=== PATIENT | female | born 1975 | race Caucasian/White ===

== ENCOUNTER → 2016-06-25 | Outpatient (CLI) | payer BC ==
[~2016-06-25] MED LIST: PRENTAB26 PO
--- NOTE | 2016-06-25 11:00 | DIAGNOSTIC IMAGING REPORT ---
RIGHT WRIST MIN 3 VIEWS ROUTINE CLINICAL HISTORY: Right wrist pain. COMPARISON: None FINDINGS: Alignment of the right carpal bones is anatomic. There is no acute fracture. Joint spaces are preserved. No osseous lesion is evident. IMPRESSION: Unremarkable right wrist radiographs. Electronically signed by: Cirilo Cosby M.D. 06/25/2016 10:58 AM Dictated Date/Time: 06/25/2016 10:58 AM
== END | disposition home or self-care (01) ==
LOC: C.RADBC 09:57
PROVIDERS: ATTEND Family Medicine
DX: M25.531 Pain in right wrist (principal)

== ENCOUNTER → 2017-10-09 | Outpatient (CLI) | payer OTHER ==
--- NOTE | 2017-10-09 09:52 | DIAGNOSTIC IMAGING REPORT ---
CHEST 2 VIEWS ROUTINE CLINICAL HISTORY: COUGH dyspnea COMPARISON STUDY: No previous studies for comparison. FINDINGS: The bones soft tissues and hemidiaphragms are normal. The cardiomediastinal silhouette is normal. The lungs are clear. The pulmonary vasculature is normal. IMPRESSION: Negative chest. The above report was generated using voice recognition software. It may contain grammatical, syntax or spelling errors. Electronically signed by: Dale Dimas M.D. 10/09/2017 9:51 AM Dictated Date/Time: 10/09/2017 9:50 AM
== END | disposition home or self-care (01) ==
LOC: C.RAD 09:31
PROVIDERS: ATTEND Family Medicine
DX: R05 Cough (principal)

== ENCOUNTER 2020-04-15 19:30 | Observation (INO) ==
[2020-04-15] MEDS ORDERED: ONDANSETRON INJ 2 MG/ML 2 ML VIAL IV STA (19:43)
[2020-04-15] MEDS ORDERED: ACETAMINOPHEN 1,000 MG/100 ML VIAL IV STA (19:43)
[2020-04-15] MEDS ORDERED: HYDROmorphone INJ 0.5 MG/0.5 ML SYR IV PRN (19:43)
[2020-04-15] MEDS ORDERED: SODIUM CHLORIDE 0.9% 1000ML 1,000 ML IV SCH (19:45)
--- NOTE | 2020-04-15 20:00 | Emergency Department Note ---
History of Present Illness General Chief complaint: Abdominal Pain Stated complaint: ABD PAIN Time Seen by Provider: 04/15/20 19:37 Source: patient, family (), RN notes reviewed and old records reviewed Mode of arrival: ambulatory Limitations: no limitations History of Present Illness Provider complaint: Abdominal pain Onset (ago): hour(s) 6 Location: abdomen and right Radiation: non-radiation Severity: moderate Pain Consistency: + intermittent Maximum Pain Intensity: 8 Current Pain Intensity: 8 Quality: + aching Relieved By: + immobilization Exacerbated By: + movement Associated symptoms: + nausea/vomiting; no chest pain, no fever/chills, no headaches, no loss of appetite and no shortness of breath This is a 44-year-old female who presents the emergency department complaining right upper quadrant and right lower quadrant abdominal pain that started approximately 2:00 this afternoon. The patient reports the pain was gradual in onset. She has not taken anything for the pain. She reports she has never had pain like this before. The patient is concerned it is her appendix. She reports movement makes the pain worse however immobilization makes the pain better. She describes the pain is a burning sensation. She still has her appendix and her gallbladder and has no history of abdominal surgery. She denies being . Home Medications Home Medications Medication Instructions Recorded Confirmed Type Probiotic 3,000 mmu cells PO QPM 06/08/18 04/15/20 History Zyrtec 10 mg PO QAM 06/08/18 04/15/20 History pantoprazole [Protonix] 40 mg PO QAM 06/08/18 04/15/20 History calcium carbonate-vitamin D3 600 1 tab PO DAILY 01/10/20 04/15/20 History mg (1,500 mg)-800 unit tablet multivitamin 1 tab PO DAILY 01/10/20 04/15/20 History diclofenac sodium 75 mg 75 mg PO BID 02/05/20 04/15/20 History tablet,delayed release tamoxifen 20 mg PO DAILY 04/15/20 04/15/20 History Allergies Allergy/AdvReac Type Severity Reaction Status Date / Time No Known Allergies Allergy Verified 04/15/20 20:11 Past Med/Surg History Medical History Encounter for pre-operative examination Fibroadenoma of left breast GERD (gastroesophageal reflux disease) PONV (postoperative nausea and vomiting) Swollen uvula Surgical History History of mandibular surgery ORTHODONITIC SURGERY S/P excision of lipoma RIGHT HIP Family History Mother Diabetes type 2 Father Cancer prosate ca Son No problems noted. Son No problems noted. Social History Smoking Status: Never smoker Second Hand Exposure: No; Hx Alcohol Use: No Hx Substance Use: No Preferred Language: Norwegian Communication Ability: Effective Visual Impairment: No Limitations Hearing Ability: Normal Plate Gauger Required: No Beliefs That Will Affect Care: None marital status: Current Living Situation: Spouse current occupation: stay at home parent How many Children do You have: 2 Feels Safe at Home: Yes Childhood Exposure to Second-Hand Smoke: No Diet Comment: watches refined carbs caffeine: Yes (2-3 cups coffee per day , one cup green tea) during the past year weight has: remained stable Dental Care, Regularly: Yes Physical Activity Frequency: 5-6 Times per Week Seatbelt Use: always Sunscreen Use: Yes Assistive Devices: None Review of Systems A total of 10 systems reviewed and were otherwise negative Physical Exam Vital Signs Vital Signs - 24 hr 04/15/20 19:33 04/15/20 20:04 04/15/20 20:42 Temperature 36.8 C Temperature Source Oral Pulse Rate 106 H 106 H 94 H Pulse Rate from SpO2 Sensor 95 H Pulse Rhythm Regular Respiratory Rate 16 16 17 Respiratory Effort / Characteristics Non-Labored Spontaneous Respiratory Depth Normal Respiratory Pattern Regular Blood Pressure 126/64 129/81 Blood Pressure Mean 84 97 Blood Pressure Position Sitting Pulse Oximetry 100 100 100 Oxygen Delivery Method Room Air Room Air Sepsis Recent Fever Within 48 Hours No Sepsis New/Unexplained Change in Mental Status No Sepsis Action Taken by Nursing No Action Required 04/15/20 21:00 04/15/20 21:30 04/15/20 22:32 Temperature Temperature Source Pulse Rate 97 H 97 H 102 H Pulse Rate from SpO2 Sensor 96 H 98 H 102 H Pulse Rhythm Respiratory Rate 13 14 18 Respiratory Effort / Characteristics Respiratory Depth Respiratory Pattern Blood Pressure 140/86 136/65 135/75 Blood Pressure Mean 100 87 104 Blood Pressure Position Pulse Oximetry 100 100 99 Oxygen Delivery Method Sepsis Recent Fever Within 48 Hours Sepsis New/Unexplained Change in Mental Status Sepsis Action Taken by Nursing 04/15/20 23:15 Temperature Temperature Source Pulse Rate 86 Pulse Rate from SpO2 Sensor 82 Pulse Rhythm Respiratory Rate 15 Respiratory Effort / Characteristics Respiratory Depth Respiratory Pattern Blood Pressure 131/75 Blood Pressure Mean 97 Blood Pressure Position Pulse Oximetry 100 Oxygen Delivery Method Room Air Sepsis Recent Fever Within 48 Hours Sepsis New/Unexplained Change in Mental Status Sepsis Action Taken by Nursing VITAL SIGNS - Vital signs and nursing notes were reviewed. GENERAL - 44-year-old female appearing stated age who is in no acute distress. Communicates well with provider and answers questions appropriately. SKIN - Without rashes. HEAD - NC/AT. EYES - PERRL with EOMI bilaterally. Sclera anicteric. Palpebral conjunctiva pink and moist with no injection noted. EARS - No deformities of external structures noted on gross examination bilaterally. No pain elicited with palpation of the tragus bilaterally. External auditory canals without discharge or otorrhea. Tympanic membranes pearly cummins without retraction or bulging. No fluid or purulent material visualized behind the TM. Handle of malleus, umbo, cone of light, pars tensa/flaccid all easily visualized. NOSE - Midline and without cyanosis. No epistaxis or purulent drainage noted. Septum midline without deviation or septal hematoma noted. MOUTH/OROPHARYNX - Without perioral cyanosis. Buccal mucosa pink and moist and without leukoplakia. Tongue midline with equal elevation of palate bilaterally. No tonsillar hypertrophy, erythema, or exudates noted. dentition noted. NECK - Neck with FROM. Supple to palpation. lymphadenopathy noted. No nuchal rigidity. LUNGS - Chest wall symmetric without accessory muscle use, intercostals retractions, or central cyanosis. Normal vesicular breath sounds CTA B/L. No wheezes, rales, or rhonchi appreciated. CARDIAC - RRR with S1/S2. No murmur, rubs, or gallops appreciated. ABDOMEN - Abdominal contour without pulsations or visible masses. BS normoactive all four quadrants. + tenderness RLQ, No palpable masses, hepatosplenomegaly, or ascites noted. EXTREMITIES - No clubbing or peripheral cyanosis. No pretibial edema present. +3/5 radial, posterior tibial, and dorsalis pedis pulses palpated throughout. +5/5 strength noted in UE/LE bilaterally. NEUROLOGIC - Cranial nerves II through XII grossly intact. Sensory intact to light touch throughout. Patellar reflexes +2/4. PSYCH - A&Ox3 and cooperates fully with examiner. Pt is very pleasant and interacts well with examiner. Course Administered Medications Hydromorphone HCl (Hydromorphone Inj 0.5 Mg/0.5 Ml Syr) 0.5 mg IV Q15M PRN PRN Reason: Pain Stop: 04/29/20 19:42 Last Admin: 04/15/20 23:08 Dose: 0.5 mg Documented by: [id number] Discontinued Medications Sodium Chloride (Nss 1000ml) 1,000 mls @ 999 mls/hr IV .Q1H1M ALEXANDER Stop: 04/15/20 20:45 Last Infusion: 04/15/20 21:35 Dose: 0 mls/hr Documented by: [id number] Admin: 04/15/20 20:11 Dose: 999 mls/hr Documented by: [id number] Acetaminophen (Ofirmev) 1,000 mg in 100 mls @ 400 mls/hr IV NOW STA Stop: 04/15/20 19:57 Last Infusion: 04/15/20 20:31 Dose: 0 mls/hr Documented by: [id number] Admin: 04/15/20 20:14 Dose: 400 mls/hr Documented by: [id number] Cefoxitin Sodium (Mefoxin) 2,000 mg in 60 mls @ 100 mls/hr IV NOW STA Stop: 04/15/20 23:20 Last Admin: 04/15/20 23:12 Dose: 100 mls/hr Documented by: [id number] Ioversol (Ioversol 100ml) 93 ml IV ONCE ONE Stop: 04/15/20 22:21 Last Admin: 04/15/20 22:21 Dose: 1 ml Documented by: [id number] Ondansetron HCl (Ondansetron Inj 2 Mg/Ml 2 Ml Vial) 4 mg IV NOW STA Stop: 04/15/20 19:44 Last Admin: 04/15/20 20:11 Dose: 4 mg Documented by: [id number] Medical Decision Making Differential Diagnosis Appendicitis, ovarian cyst, ovarian torsion, ectopic , TOA, PID, infections, diverticulitis, UTI, obstruction, mesenteric ischemia, aortic pathology, inflammatory bowel disease, renal colic, PUD, pancreatitis, biliary pathology, hernia, volvulus, constipation, as well as other pathologies. Medical Records Attestation: I reviewed the patient's medical records. Home Medications Current Medication List: was personally reviewed by me Laboratory Data Attestation: I reviewed the patient's lab results. Result diagrams: 04/15/20 20:04 04/15/20 20:04 Lab Results 04/15/20 04/15/20 04/15/20 Range/Units 20:04 20:04 20:04 WBC 12.38 H (4.8-10.8) K/uL RBC 4.07 L (4.2-5.4) M/uL Hgb 11.3 L (12.0-16.0) g/dL Hct 35.9 L (37-47) % MCV 88.2 (80-100) fL MCH 27.8 (25-34) pg MCHC 31.5 L (32-36) g/dL RDW Std Deviation 50.3 H (36.4-46.3) fL RDW Coeff of Shantel 15.4 H (11.5-14.5) % Plt Count 262 (130-400) K/uL MPV 10.1 (7.4-10.4) fL Immature Gran % (Auto) 0.2 % Neut % (Auto) 89.1 % Lymph % (Auto) 5.1 % [place] % (Auto) 5.3 % Eos % (Auto) 0.1 % Baso % (Auto) 0.2 % Neut # (Auto) 11.02 H (1.4-6.5) K/uL Lymph # (Auto) 0.63 L (1.2-3.4) K/uL [place] # (Auto) 0.66 H (0.11-0.59) K/uL Eos # (Auto) 0.01 (0-0.5) K/uL Baso # (Auto) 0.03 (0-0.2) K/uL Immature Gran # (Auto) 0.03 H (0.00-0.02) K/uL Sodium 139 (136-145) mmol/L Potassium 3.4 L (3.5-5.1) mmol/L Chloride 107 (98-107) mmol/L Carbon Dioxide 25 (21-32) mmol/L Anion Gap 7.0 (3-11) BUN 10 (7-18) mg/dl Creatinine 0.81 (0.6-1.2) mg/dl Est Cr Clr Drug Dosing 88.0 ml/min Est GFR ( Amer) 103.8 Est GFR (Non-Af Amer) 89.6 BUN/Creatinine Ratio 11.8 (10-20) Glucose 110 H (70-99) mg/dl Calcium 8.8 (8.5-10.1) mg/dl Total Bilirubin 0.7 (0.2-1) mg/dl AST 14 L (15-37) U/L ALT 18 (12-78) U/L Alkaline Phosphatase 34 L (45-117) U/L Total Protein 7.7 (6.4-8.2) gm/dl Albumin 3.9 (3.4-5.0) gm/dl Globulin 3.8 (2.5-4.0) gm/dl Albumin/Globulin Ratio 1.0 (0.9-2) Lipase 112 (73-393) U/L Urine Color Yellow Urine Appearance Clear (Clear) Urine pH >= 9.0 H (4.5-7.5) Ur Specific Whitney 1.017 (1.000-1.030) Urine Protein Negative (Negative) Urine Glucose (UA) Negative (Negative) Urine Ketones 4+ H (Negative) Urine Blood Negative (Negative) Urine Nitrite Negative (Negative) Urine Bilirubin Negative (Negative) Urine Urobilinogen Negative (Negative) Ur Leukocyte Esterase Negative (Negative) Urine Test (Negative) COVID-19 Eval Order SARS-CoV-2, RNA, NAAT 04/15/20 04/15/20 04/15/20 Range/Units 20:04 23:18 23:18 WBC (4.8-10.8) K/uL RBC (4.2-5.4) M/uL Hgb (12.0-16.0) g/dL Hct (37-47) % MCV (80-100) fL MCH (25-34) pg MCHC (32-36) g/dL RDW Std Deviation (36.4-46.3) fL RDW Coeff of Shantel (11.5-14.5) % Plt Count (130-400) K/uL MPV (7.4-10.4) fL Immature Gran % (Auto) % Neut % (Auto) % Lymph % (Auto) % [place] % (Auto) % Eos % (Auto) % Baso % (Auto) % Neut # (Auto) (1.4-6.5) K/uL Lymph # (Auto) (1.2-3.4) K/uL [place] # (Auto) (0.11-0.59) K/uL Eos # (Auto) (0-0.5) K/uL Baso # (Auto) (0-0.2) K/uL Immature Gran # (Auto) (0.00-0.02) K/uL Sodium (136-145) mmol/L Potassium (3.5-5.1) mmol/L Chloride (98-107) mmol/L Carbon Dioxide (21-32) mmol/L Anion Gap (3-11) BUN (7-18) mg/dl Creatinine (0.6-1.2) mg/dl Est Cr Clr Drug Dosing ml/min Est GFR ( Amer) Est GFR (Non-Af Amer) BUN/Creatinine Ratio (10-20) Glucose (70-99) mg/dl Calcium (8.5-10.1) mg/dl Total Bilirubin (0.2-1) mg/dl AST (15-37) U/L ALT (12-78) U/L Alkaline Phosphatase (45-117) U/L Total Protein (6.4-8.2) gm/dl Albumin (3.4-5.0) gm/dl Globulin (2.5-4.0) gm/dl Albumin/Globulin Ratio (0.9-2) Lipase (73-393) U/L Urine Color Urine Appearance (Clear) Urine pH (4.5-7.5) Ur Specific Whitney (1.000-1.030) Urine Protein (Negative) Urine Glucose (UA) (Negative) Urine Ketones (Negative) Urine Blood (Negative) Urine Nitrite (Negative) Urine Bilirubin (Negative) Urine Urobilinogen (Negative) Ur Leukocyte Esterase (Negative) Urine Test Negative (Negative) COVID-19 Eval Order Covid19 Done at [facility] SARS-CoV-2, RNA, NAAT Cancelled Imaging Data Attestation: I personally reviewed and interpreted this imaging study as follows: Radiologist's Impression: CT abdomen pelvis with contrast: Markedly enlarged appendix measuring 2 cm in diameter with multiple calcified appendicoliths and adjacent stranding. Compatible with acute appendicitis. No definite appendiceal abscess. 2.5 x 5 cm right adnexal cystic lesion. Trace nonspecific free pelvic fluid. Small fat-containing periumbilical ventral abdominal wall hernia. MDM Narrative Patient was seen and evaluated as above in room B4. Review was performed of nursing notes and vital signs. I did review pertinent previous visits and patient history. After obtaining a thorough history and physical examination the above work up was performed. This is a 44-year-old female who presents emergency department complaining of right lower quadrant abdominal pain. Using shared medical decision making with the patient and her decision was made to send the patient for CAT scan of the abdomen pelvis. Patient does have a slight elevation of white blood cell count of 12.38. Serial abdominal examinations were performed of this patient in the emergency department and at no time did the patient exhibited surgical abdomen. She was given Dilaudid for her pain as well as Tylenol. CAT scan is concerning for acute appendicitis. I did discuss the case with the surgeon on- call. The patient was started on Mefoxin here in the emergency department. An order was placed for continuous cardiac monitoring. The monitor shows a rate of 106 with Normal Sinus rhythm. The patient was evaluated during the global COVID-19 pandemic, and that diagnosis was suspected/considered upon their initial presentation. Their evaluation, treatment and testing was consistent with current guidelines for patients who present with complaints or symptoms that may be related to COVID- 19. Impression & Plan Abdominal pain, Acute appendicitis Discharge Plan Visit Data Chief Complaint: Abdominal Pain Stated Complaint: ABD PAIN ED Provider: Alfie Krueger Discharge Problem: Abdominal pain, Acute appendicitis Forms Stand Alone Forms: My [facility] Prescriptions Prescriptions: No Action multivitamin Tablet 1 tab PO DAILY RF: 0 calcium carbonate-vitamin D3 [Caltrate with Vitamin D3] 600 mg(1,500mg) -800 unit tablet 1 tab PO DAILY RF: 0 diclofenac sodium 75 mg tablet,delayed release (DR/EC) 75 mg PO BID RF: 0 pantoprazole [Protonix] 40 mg Tablet,Delayed Release (Dr/Ec) 40 mg PO QAM RF: 0 Zyrtec 10 mg Capsule 10 mg PO QAM RF: 0 Probiotic 3 billion cell Capsule 3,000 mmu cells PO QPM RF: 0 tamoxifen 20 mg tablet 20 mg PO DAILY RF: 0 Discharge Problem: Abdominal pain Qualifiers: Abdominal location: unspecified location Qualified Code(s): R10.9 - Unspecified abdominal pain Acute appendicitis Qualifiers: Acute appendicitis type: unspecified acute appendicitis type Qualified Code(s): K35.80 - Unspecified acute appendicitis
[2020-04-15 20:13] LABS: Basophils # (auto) 0.03 K/uL (0-0.2); Basophils % (auto) 0.2 %; Eosinophils # (auto) 0.01 K/uL (0-0.5); Eosinophils % (auto) 0.1 %; Hematocrit (blood only) 35.9 % (37-47); Hemoglobin 11.3 g/dL (12.0-16.0); Immature Granulocytes # (auto) 0.03 K/uL (0.00-0.02); Immature Granulocytes % (auto) 0.2 %; Lymphocytes # (auto) 0.63 K/uL (1.2-3.4); Lymphocytes % (auto) 5.1 %; Mean Corpuscular Hemoglobin 27.8 pg (25-34); Mean Corpuscular Hgb Conc 31.5 g/dL (32-36); Mean Corpuscular Volume 88.2 fL (80-100); Mean Platelet Volume 10.1 fL (7.4-10.4); Monocytes # (auto) 0.66 K/uL (0.11-0.59); Monocytes % (auto) 5.3 %; Neutrophils # (auto) 11.02 K/uL (1.4-6.5); Neutrophils % (auto) 89.1 %; Platelet Count 262 K/uL (130-400); RDW Coefficient of Variation 15.4 % (11.5-14.5); RDW Standard Deviation 50.3 fL (36.4-46.3); Red Blood Count 4.07 M/uL (4.2-5.4); White Blood Count 12.38 K/uL (4.8-10.8)
[2020-04-15 20:15] LABS: Appearance Urine Clear (Clear); Bilirubin Urine Negative (Negative); Blood Urine Negative (Negative); Color Urine Yellow; Glucose Urine UA Negative (Negative); Ketones Urine 4+ (Negative); Leukocyte Esterase Urine Negative (Negative); Nitrite Urine Negative (Negative); Pregnancy Test, Urine Negative (Negative); Protein Urine Negative (Negative); Specific Gravity Urine 1.017 (1.000-1.030); Urobilinogen Urine Negative (Negative); pH Urine >= 9.0 (4.5-7.5)
[2020-04-15 20:36] LABS: Albumin Level 3.9 gm/dl (3.4-5.0); BUN Creatinine Ratio 11.8 (10-20); Calcium 8.8 mg/dl (8.5-10.1); Est GFR (African American) 103.8; Est GFR (Non-African American) 89.6; Potassium 3.4 mmol/L (3.5-5.1)
[2020-04-15 20:38] LABS: Bilirubin,Total 0.7 mg/dl (0.2-1); Globulin 3.8 gm/dl (2.5-4.0); Total Protein 7.7 gm/dl (6.4-8.2)
[2020-04-15] MEDS ORDERED: IOVERSOL 100ml IV ONE (22:20)
[2020-04-15] MEDS ORDERED: cefOXitin 2,000 MG/60 ML BAG IV STA (22:45)
--- NOTE | 2020-04-15 23:11 | History & Physical Report ---
Date of Service April 15, 2020 Assessment & Plan (1) Acute appendicitis: -discussed with Dr. Cerna--will plan on appendectomy between 5-6 am on 04/16/20 -procedure discussed with pt. and and they wish to proceed -keep npo -hydrate with IVF -provide analgesics and anti-emetics -continue abx.--she has received mefoxin in the ED -COVID-19 test is pending History of Present Illness Chief Complaint: Abdominal Pain Primary Care Provider: Guy Brighty 44 year old female developed generalized abdominal pain about 3 pm on 04/15/20. The pain shifted to the RLQ over the ensuing hours. The pain is worse when going over bumps during the care ride to the hospital. No palliative factors noted and no radiation of pain noted. She has nausea without vomiting. Her last oral intake was about 3 pm on 04/15/20 and she currently has a poor apatitie. In the ED she was afebrile with WBC of 12.3. CT scan showed a dilated appendix about 2 cm in diameter with appendicoliths. No abscess was noted. She had a urine test that as noted to be (-). She washemodynamically stable and not tachycardic. She notes when she is feeling well she is active and can negotiate step and inclines without CP or SOB. At the time of my exam she stated she had only received IV tylenol an her pain was tolerable. She was n no distress. Allergies Allergy/AdvReac Type Severity Reaction Status Date / Time No Known Allergies Allergy Verified 04/15/20 20:11 Home Medications Home Medications Medication Instructions Recorded Confirmed Type Probiotic 3,000 mmu cells PO QPM 06/08/18 04/15/20 History Zyrtec 10 mg PO QAM 06/08/18 04/15/20 History pantoprazole [Protonix] 40 mg PO QAM 06/08/18 04/15/20 History calcium carbonate-vitamin D3 600 1 tab PO DAILY 01/10/20 04/15/20 History mg (1,500 mg)-800 unit tablet multivitamin 1 tab PO DAILY 01/10/20 04/15/20 History diclofenac sodium 75 mg 75 mg PO BID 02/05/20 04/15/20 History tablet,delayed release tamoxifen 20 mg PO DAILY 04/15/20 04/15/20 History Past Med/Surg History Medical History Encounter for pre-operative examination Fibroadenoma of left breast GERD (gastroesophageal reflux disease) PONV (postoperative nausea and vomiting) Swollen uvula Surgical History History of mandibular surgery ORTHODONITIC SURGERY S/P excision of lipoma RIGHT HIP Family History Mother Diabetes type 2 Father Cancer prosate ca Son No problems noted. Son No problems noted. Social History Smoking Status: Never smoker Second Hand Exposure: No; Hx Alcohol Use: No Hx Substance Use: No Preferred Language: Greenlandic Communication Ability: Effective Visual Impairment: No Limitations Hearing Ability: Normal Band Instrument Repairer Required: No Beliefs That Will Affect Care: None marital status: Current Living Situation: Spouse current occupation: stay at home parent How many Children do You have: 2 Other Information That Helps Us Care for You: No Feels Safe at Home: Yes Safety Concerns: Feels Safe At This Time Childhood Exposure to Second-Hand Smoke: No Diet Comment: watches refined carbs caffeine: Yes (2-3 cups coffee per day , one cup green tea) during the past year weight has: remained stable Dental Care, Regularly: Yes Physical Activity Frequency: 5-6 Times per Week Seatbelt Use: always Sunscreen Use: Yes Assistive Devices: Walker Review of Systems Constitutional: no fever and no sweats Eyes: no diplopia Ear, Nose, Mouth, Throat: no ear pain Respiratory: no cough and no dyspnea Cardiovascular: no chest pain Gastrointestinal: + abdominal pain and + nausea; no vomiting Genitourinary: no dysuria Musculoskeletal: no back pain Integumentary: no rash Neurologic: no localized weakness Physical Exam Constitutional: well developed and well nourished; no acute distress Eyes: no conjunctival abnormality ENMT: Ears: no external ear abnormality Neck: trachea midline Respiratory: normal respiratory effort, lungs clear to auscultation Cardiovascular: Rate/Rhythm: regular rate and regular rhythm Vessels: posterior tibial pulses present Gastrointestinal (Abdomen): Percussion/Palpation: + abdomen tender (RLQ) and abdomen soft (+) rovsing signs Musculoskeletal: no calf pain Skin: normal turgor Neurologic: moves all extremities Psychiatric: A+Ox3, euthymic affect Results & Data Results & Data ([facility]) Vital Signs (Past 12 Hours) Vital Signs Temp Pulse Resp BP Pulse Ox 04/15/20 22:32 102 H 18 135/75 99 04/15/20 21:30 97 H 14 136/65 100 04/15/20 21:00 97 H 13 140/86 100 04/15/20 20:42 94 H 17 129/81 100 04/15/20 20:04 106 H 16 100 04/15/20 19:33 36.8 C 106 H 16 126/64 100 Supervising Physician Co-Signing Physician Notes As per Peng Hines physician clinical laboratory assistant CT scan shows a 2 cm appendix with appendicolith Abdominal finding right lower quadrant tenderness with minimal rebound We will proceed with laparoscopic appendectomy possible open risk and complication were explained to the patient converting to an open procedure including bleeding infection anticipated recovery time She would like to proceed accordingly Surgery notified at this time PG Care Time/CCT Total # of Minutes Spent Total Time Spent with Patient: Total time spent is greater than 50% in coordination of care (as documented) at patient's floor/unit and/or counseling patient: Coding Level of Care Code 11935 OBS Care - Level 3 Diagnoses Acute appendicitis K35.80 Acute appendicitis type: unspecified acute appendicitis type (1) Acute appendicitis Acute appendicitis type: unspecified acute appendicitis type Qualified Code(s): K35.80 - Unspecified acute appendicitis
[2020-04-16] MEDS ORDERED: ACETAMINOPHEN 1,000 MG/100 ML VIAL IV PRN (01:00)
[2020-04-16] MEDS ORDERED: ONDANSETRON INJ 2 MG/ML 2 ML VIAL IV PRN ×2 (01:00→07:11)
[2020-04-16] MEDS ORDERED: MoRPHine SULFATE 2 MG/ML CARP IV PRN ×2 (01:00→10:07)
[2020-04-16] MEDS: LACTATED RINGER'S 1,000 ML IV SCH ×2 (01:50→10:17)
[2020-04-16] MEDS ORDERED: SCOPOLAMINE 1.5 MG TDSY TD ONE ×2 (07:10→07:11)
[2020-04-16] MEDS ORDERED: MEPERIDINE HCL 25 MG/ML CARP/VIAL IV PRN (07:11)
[2020-04-16] MEDS ORDERED: HYDROmorphone INJ 1 MG/ML SYRINGE IV PRN (07:11)
[2020-04-16] MEDS ORDERED: ATROPINE SULFATE 0.1 MG/ML 10ML SYR IV PRN (07:11)
[2020-04-16] MEDS ORDERED: PHENYLEPHRINE 100MCG/ML 5ML SYR IV PRN (07:11)
[2020-04-16] MEDS ORDERED: LABETALOL HCL IV 5 MG/ML 20ML IV PRN (07:11)
[2020-04-16] MEDS ORDERED: ePHEDrine sulfate 50 MG/ML AMP IV PRN (07:11)
--- NOTE | 2020-04-16 07:19 | CT Scan Report ---
ABDOMEN AND PELVIS CT WITH IV AND ORAL CONTRAST CT DOSE: 267.15 mGy.cm HISTORY: Right lower quadrant abdominal pain. TECHNIQUE: Multiaxial CT images of the abdomen and pelvis were performed following the use of intrave nous and oral contrast. A dose lowering technique was utilized adhering to the principles of ALARA. COMPARISON STUDY: None. FINDINGS: The lung bases are clear. No suspicious lytic or blastic osseous lesions. The liver, gallbl adder, pancreas, spleen, adrenal glands, kidneys are within normal limits. No hydronephrosis. No retr operitoneal lymphadenopathy. The bladder, uterus, and left ovary are within normal limits. There is a 4.8 cm right adnexal cyst. No evidence for bowel obstruction. Distended and fluid-filled appendix wi th periappendiceal edema and fat stranding. The appendix is best seen on image 234 and measures 1.7 c m in diameter. This is consistent with acute appendicitis. There are a few calcified appendicoliths w ithin the appendix. No definite periappendiceal abscess at this time. Tiny fat-containing umbilical h ernia. IMPRESSION: 1. Acute appendicitis. 2. A 4.8 cm right adnexal cystic lesion. Follow-up pelvic ultrasound in 2-3 months is recommended to ensure resolution. ACT 112: Negative or not required by law. Electronically signed by: Nathan Kirby M.D. 04/16/2020 7:17 AM
--- NOTE | 2020-04-16 07:20 | Anesthesiology Consultation ---
Date of Service April 16, 2020 Covid 19 negative on 04/15/20. Assessment & Plan (1) Encounter for pre-operative examination: (2) Encounter for pre-operative examination: Chart Review Chart Review: Acceptable Risk for Surgery and Patient NOT seen in Pre Admission Testing Consults Requested none History Surgery Operation Date: 04/16/20 05:30 Proposed Procedures p Laparoscopic Appendectomy - Tomy Cerna MD Height/Weight Height: 5 ft 7 in Weight: 65.4 kg Allergies Allergy/AdvReac Type Severity Reaction Status Date / Time No Known Allergies Allergy Verified 04/15/20 20:11 Medications Home Medications Medication Instructions Recorded Confirmed Last Taken Probiotic 3,000 mmu cells PO QPM 06/08/18 04/15/20 04/14/20 Zyrtec 10 mg PO QAM 06/08/18 04/15/20 04/14/20 pantoprazole [Protonix] 40 mg PO QAM 06/08/18 04/15/20 04/15/20 calcium carbonate-vitamin D3 600 1 tab PO DAILY 01/10/20 04/15/20 04/14/20 mg (1,500 mg)-800 unit tablet multivitamin 1 tab PO DAILY 01/10/20 04/15/20 04/14/20 diclofenac sodium 75 mg 75 mg PO BID 02/05/20 04/15/20 04/15/20 08:00 tablet,delayed release tamoxifen 20 mg PO DAILY 04/15/20 04/15/20 04/14/20 Active Medications Generic Name Dose Route Start Last Admin Trade Name Freq PRN Reason Stop Dose Admin Lactated Ringer's 1,000 mls @ 100 mls/hr 04/16/20 01:00 04/16/20 01:50 Lr IV 05/16/20 00:59 100 mls/hr .Q10H ALEXANDER Administration Acetaminophen 1,000 mg in 100 mls @ 400 mls/hr 04/16/20 01:00 04/16/20 04:39 Ofirmev IV 04/19/20 00:59 Infused Q8H PRN Infusion Pain Morphine Sulfate 2 mg 04/16/20 01:00 04/16/20 01:50 Morphine Sulfate 2 Mg/Ml Carp IV 04/30/20 00:59 2 mg Q3H PRN Administration Pain NPO Date Last Intake of Fluids: 04/15/20 Time Last Intake of Fluids: 22:00 Date Last Intake of Solids: 04/15/20 Time Last Intake of Solids: 15:00 Past Medical History Medical History Encounter for pre-operative examination Fibroadenoma of left breast GERD (gastroesophageal reflux disease) PONV (postoperative nausea and vomiting) Swollen uvula Past Family History Family History Mother Diabetes type 2 Father Cancer prosate ca Son No problems noted. Son No problems noted. Past Surgical History Surgical History History of mandibular surgery ORTHODONITIC SURGERY S/P excision of lipoma RIGHT HIP Social History Smoking Status: Never smoker Hx Alcohol Use: No Hx Substance Use: No substance use type: does not use Physical Exam Vital Signs Last Vital Signs Temp 37.1 C 04/16/20 07:02 Pulse 93 H 04/16/20 07:02 Resp 20 04/16/20 07:02 BP 123/63 04/16/20 07:02 Pulse Ox 96 04/16/20 07:02 Testing Laboratory Results 04/15/20 20:04 04/15/20 20:04 Urine Color Yellow 04/15/20 20:04 Urine Appearance Clear (Clear) 04/15/20 20:04 Urine pH >= 9.0 (4.5-7.5) H 04/15/20 20:04 Ur Specific [place] 1.017 (1.000-1.030) 04/15/20 20:04 Urine Protein Negative (Negative) 04/15/20 20:04 Urine Glucose (UA) Negative (Negative) 04/15/20 20:04 Urine Ketones 4+ (Negative) H 04/15/20 20:04 Urine Nitrite Negative (Negative) 04/15/20 20:04 Ur Leukocyte Esterase Negative (Negative) 04/15/20 20:04 Urine Test Negative (Negative) 04/15/20 20:04 04/15/20 20:04 Urine Test Negative
[2020-04-16] MEDS ORDERED: MIDAZOLAM HCL 1 MG/ML 2ML VIAL ONE (07:26)
[2020-04-16] MEDS ORDERED: fentaNYL citrate 100 MCG/2 ML VIAL ONE ×2 (07:27→08:43)
[2020-04-16] MEDS ORDERED: ONDANSETRON INJ 2 MG/ML 2 ML VIAL ONE (07:28)
[2020-04-16] MEDS ORDERED: GLYCOPYRROLATE 0.2 MG/ML VIAL ONE (07:28)
[2020-04-16] MEDS ORDERED: NEOSTIGMINE METHYLSULFATE 5 MG/5 ML SYR ONE (07:28)
[2020-04-16] MEDS ORDERED: LIDOCAINE HCL 2% 2 ML VIAL/AMP(20MG/ML) INFIL ONE (07:28)
[2020-04-16] MEDS ORDERED: ROCURONIUM BROMIDE 10 MG/ML 5 ML VIAL IV ONE (07:28)
[2020-04-16] MEDS ORDERED: PROPOFOL IV EMULSION 10 MG/ML 20 ML VIAL IV ONE (07:28)
[2020-04-16] MEDS ORDERED: DEXAMETHASONE SOD INJ 4 MG/ML VIAL ONE (07:28)
[2020-04-16] MEDS: cefOXitin 2,000 MG in DEXTROSE 5% 50 ML IV SCH ×2 (07:40→11:50)
[2020-04-16] MEDS ORDERED: LIDOCAINE/EPINEPHRINE 1% 20 ML VIAL ONE (07:42)
[2020-04-16] MEDS ORDERED: KETOROLAC 30 MG/ML VIAL ONE (08:54)
--- NOTE | 2020-04-16 09:00 | Post Operative Brief Note ---
PG Immediate Post Op with CF Date of Surgery April 16, 2020 Pre & Post Diagnosis Operation Date: 04/16/20 05:30 Pre-Op Diagnosis: Acute Appendicitis Post-Op Diagnosis: Acute Appendicitis Excision of Incarcerated Umbilical Fat I identified the patient and participated in the time-out.: Yes Procedure Operation Date: 04/16/20 05:30 Actual Procedures p Laparoscopic Appendectomy and Excision of Incarcerated Umbilical Fat - Tomy Cerna MD Surgeon Tomy Cerna MD Environmental Sciences Professor b juan francisco sebastian Estimated Blood Loss 5 Findings Consistent with Post-Op Diagnosis Drains Mikel Drain (19fr)
--- NOTE | 2020-04-16 09:16 | Operative Report ---
PG Post Operative Report Pre & Post Diagnosis Operation Date: 04/16/20 05:30 Pre-Op Diagnosis: Acute Appendicitis Post-Op Diagnosis: Acute Appendicitis Excision of Incarcerated Umbilical Fat I identified the patient and participated in the time-out.: Yes Procedure Operation Date: 04/16/20 05:30 Actual Procedures p Laparoscopic Appendectomy and Excision of Incarcerated Umbilical Fat - Tomy Cerna MD The patient was brought into the operating theater at approximately 8 AM we are tentatively scheduled for surgery as above 4:00 in or so but due to emergencies she was bumped under supine position the abdomen was prepped byline solution after patient had a general endotracheal anesthesia allowing allocated time for Covid before we shaved and prepped systemic biotics has been on board we made a small incision supraumbilically noticed that the patient has some incarcerated fatty tissue and a small umbilical hernia we were able to circumferentially freed this fatty tissue and resected it placed a 5 mm trocar after a Veress needle was placed CO2 insufflated point of entry inspected no injury identified we looked the right lower quadrant conceded the cecum without any inflammatory processes we placed a 5 mm right upper quadrant port with preemptive local analgesic the cecum was then elevated what we could see with standing medial and and inflammatory tissue that seems to be a fibrinous exudate could not make out whether this was the mesentery to the appendix at this point we converted the 5 mm umbilical port to 11 mm on direct visualization and use the 5 mm placed in left lower quadrant the camera was then placed in left lower quadrant then used in the umbilical and right upper quadrant port we were of 8 they fibrinous t issue all up and found a really would look like an inflamed appendix and inferior surface it was bluish in nature but is nonperforated it was quite thickened as far size they read it is to centimeter we will the scar tissue to the mesoappendix was quite significant we were able to stay close to the appendiceal wall actually was under tension because of the pain the left and manipulating with a grasper we did have some oozing of fecal material which we were immediately suctioned out we worked our way to the base of the appendix using 5 mm clips occasional a 10 mm clip once we were able to get to the base of the appendix after freeing this all up we used a purple load of the ASHISH fired across right at the cecal takeoff of the appendix the staple line appeared intact with no bleeding patient been placed in left lateral in Trendelenburg position with reverse dose and irrigated the right lower quadrant quite significantly placed the appendix in an Endopouch and taken out intact through the epigastric port reinserted 11 mm trocar again irrigated copiously the area including the pelvic area and I elected to drain this with a Mikel drain which we brought medially in the left lower quadrant position in the pelvis towards the right gutter and taken out the right upper quadrant touches skin edge with 2-0 silk this point individual trochars removed on direct physician last the umbilical trocar we used #1 PDS [id number] x2 to close the umbilical area fascia and 4-0 Monocryl subcuticular Steri-Strips applied procedure was tolerated well by the patient estimated blood loss approximately 5 cc addendum Jonathan sebastian was present also full-time helping with camera work and retraction and wound closure Surgeon Tomy Cerna MD Traffic Rate Analyst drew sebastian Estimated Blood Loss 5 Findings Consistent with Post-Op Diagnosis Specimens appendix and incarcerated fatty tissue umbilical area Description of Procedure merda I attest to the content of the Intraoperative Record and any orders documented therein. Any exceptions are noted below.
[2020-04-16] MEDS: fentaNYL citrate 100 MCG/2 ML VIAL IV PRN ×2 (09:25→09:30)
--- NOTE | 2020-04-16 09:45 | Anesthesiology Progress Note ---
Date of Service April 16, 2020 Anesthesia Post Procedure Vital Signs Vital Signs: Temp Pulse Pulse Pulse Resp BP BP 04/16/20 09:35 71 19 109/49 L 04/16/20 09:25 81 20 117/57 L 04/16/20 09:19 36.9 C 106 H 18 115/82 04/16/20 07:02 37.1 C 93 H 20 123/63 04/16/20 06:50 37.3 C 97 H 16 129/71 04/16/20 00:56 37.2 C 86 15 108/77 04/16/20 00:49 90 20 136/70 04/15/20 23:31 98 H 12 04/15/20 23:15 86 15 131/75 04/15/20 22:32 102 H 18 135/75 04/15/20 21:30 97 H 14 136/65 04/15/20 21:00 97 H 13 140/86 04/15/20 20:42 94 H 17 129/81 04/15/20 20:04 106 H 16 04/15/20 19:33 36.8 C 106 H 16 126/64 Pulse Ox 04/16/20 09:35 95 04/16/20 09:25 100 04/16/20 09:19 100 04/16/20 07:02 96 04/16/20 06:50 98 04/16/20 00:56 100 04/16/20 00:49 98 04/15/20 23:31 96 04/15/20 23:15 100 04/15/20 22:32 99 04/15/20 21:30 100 04/15/20 21:00 100 04/15/20 20:42 100 04/15/20 20:04 100 04/15/20 19:33 100 Pain Intensity Abdomen: Pain Intensity: 4 Transfer of Care Handoff Completed per policy Notes Mental Status: alert / awake / arousable Patient Amnestic to Procedure: Yes Nausea / Vomiting: adequately controlled Pain: adequately controlled Airway Patency, RR, SpO2: stable & adequate BP & HR: stable & adequate Hydration State: stable & adequate Anesthetic Complications: no major complications apparent and Pt Satisfied with anesthetic care
[2020-04-16] MEDS ORDERED: oxyCODONE/ACETAMINOPHEN 5mg/325mg TAB PO PRN ×2 (10:07)
[2020-04-16] MEDS ORDERED: MoRPHine SULFATE 4 MG/ML 1 ML CARP\\VIAL IV PRN (10:07)
[2020-04-16 13:00] VITALS: BP 111/76; PULSE 89; TEMP 97.7; O2SAT 100
--- NOTE | 2020-04-16 13:54 | Discharge Summary ---
Date of Service April 16, 2020 Admission HPI Per Admitting Provider 44 year old female developed generalized abdominal pain about 3 pm on 04/15/20. The pain shifted to the RLQ over the ensuing hours. The pain is worse when going over bumps during the care ride to the hospital. No palliative factors noted and no radiation of pain noted. She has nausea without vomiting. Her last oral intake was about 3 pm on 04/15/20 and she currently has a poor apatitie. In the ED she was afebrile with WBC of 12.3. CT scan showed a dilated appendix about 2 cm in diameter with appendicoliths. No abscess was noted. She had a urine test that as noted to be (-). She washemodynamically stable and not tachycardic. She notes when she is feeling well she is active and can negotiate step and inclines without CP or SOB. At the time of my exam she stated she had only received IV tylenol an her pain was tolerable. She was n no distress. Principal Diagnosis Acute appendicitis Discharge Exam Gastrointestinal (Abdomen) Inspection/Auscultation: + abdominal surgical drain present; abdomen not distended Percussion/Palpation: abdomen soft Discharge Data Allergies Allergy/AdvReac Type Severity Reaction Status Date / Time No Known Allergies Allergy Verified 04/15/20 20:11 Consultations 04/15/20 22:45 ED Decision to Admit Stat Procedures Performed Operation Date: 04/16/20 05:30 Actual Procedures p Laparoscopic Appendectomy and - Tomy Cerna MD s Excision of Incarcerated Umbilical Fat - Tomy Cerna MD Ordered Studies 04/15/20 19:43 CT abd pelvis oral and IV con Urgent Hospital Course (1) Acute appendicitis: 44 y/o female presented to the ER with abdominal pain. White count was 12,[address] was consistent with acute appendicitis. She was admitted to the surgical floor overnight and taken to the operating room for laparoscopic appendectomy in the morning. She was returned to the floor and was able to advance diet and tolerate oral analgesics during the day. She was stable for discharge home in the afternoon with a Mikel drain to be removed in the clinic later this week. Total Time Total Time Spent Total Time Spent (In Minutes): 10 Discharge Plan Discharge Items Patient Disposition: Home - Self-Care Reason For Visit: APPY Discharge Diagnosis: laparoscopic appendectomy Activity: Per Instructions section Lifting: No more than 10 pounds Bathing Comment: may shower starting 04/17/20; no soaking in tubs/pools Exercise/Sports: Wait until after follow-up appointment Driving/Machine Use: do not resume driving while taking narcotics for pain Non-emergency contact: Surgeon Call non-emergency contact if: you have any medication questions, your symptoms worsen, your pain is not controlled, your pain is worsening, your pain is concerning for you, you have a fever, your temperature is above 101.5, your wound has increased redness, your wound has increased drainage and your wound pain has increased Follow-up/Referrals: Tomy Cerna MD [Surgeon] - (Please call to schedule an appointment to have the drain removed on Wednesday.) Guy Carrizales [Primary Care Provider] - Diet: Regular Addtl Attending Provider Instructions: You have small white bandages over your incisions called steri strips that you should leave in place. You may shower with these on. They will tend to fall off on their own within 7-10 days. Empty the drain 2-3 times daily. Pending Studies at Discharge: Yes Stand-Alone Forms: My [facility] [email or web address], Smoking Cessation Medications and DC Order Prescriptions: New oxycodone-acetaminophen [Percocet] 5-325 mg tablet 1 - 2 tab PO .q4-6h PRN (Reason: pain, for initial therapy, max 6 tabs per day) Qty: 10 RF: 0 amoxicillin-pot clavulanate [Augmentin] 875-125 mg tablet 1 tab PO BID Qty: 14 RF: 0 Continued multivitamin Tablet 1 tab PO DAILY RF: 0 calcium carbonate-vitamin D3 [Caltrate with Vitamin D3] 600 mg(1,500mg) -800 unit tablet 1 tab PO DAILY RF: 0 diclofenac sodium 75 mg tablet,delayed release (DR/EC) 75 mg PO BID RF: 0 pantoprazole [Protonix] 40 mg Tablet,Delayed Release (Dr/Ec) 40 mg PO QAM RF: 0 Zyrtec 10 mg Capsule 10 mg PO QAM RF: 0 Probiotic 3 billion cell Capsule 3,000 mmu cells PO QPM RF: 0 tamoxifen 20 mg tablet 20 mg PO DAILY RF: 0 Discharge Orders: Discharge Order (Routine); Ordered 11/03/20 Ordered By: Alexys Chew Admission Data Admit Date/Time: 04/16/20 00:03 Attending Provider: Tomy Cerna Admit Provider: Tomy Cerna Primary Care Provider: Guy Carrizales Other Providers: Tomy Cerna Coding Level of Care Code D/C Day Management <30 mins Diagnoses Acute appendicitis K35.80 Acute appendicitis type: unspecified acute appendicitis type
[2020-04-19] MEDS ORDERED: CHECK SCOPOLAMINE PATCH PLACEMENT SCH
== END 2020-04-16 15:29 | disposition home or self-care (01) ==
LOC: ED 19:30 → 3E 19:30